=== PATIENT | female | born 1945 | race Caucasian/White ===

== ENCOUNTER 2016-08-23 23:21 | Emergency (ER) | payer OTHER ==
[~2016-08-23 23:21] MED LIST: ATORVASTATIN CA40 M1 PO; CLINDAMYCIN300 M1 PO; COL100 PO; DIOVAN80 MG PO; FLONS; GUAIFEN/CODEIN120 ML PO; IPRATROPIUM BROM3 M2 HHN; LAC PO; LEVAQUIN500 MG PO; LORAZEPAM0.5 MG PO; MOTRIN800 MG PO; NEU300 PO; NOR10T PO; NORCO1 TA2 PO; PRI20 PO; PROVENTIL0.09 MG/A1 INH; ROBAXIN-750750 MG PO; SING10 PO; TAP5 PO; TEMAZEPAM15 MG PO; TOPAMAX25 MG PO; VITAMIN-D1000 IU PO; ZES10 PO; ZOFRAN ODT4 MG SL
[2016-08-24 02:44] VITALS: BP 147/86
== END 2016-08-24 02:44 | disposition home or self-care (01) ==
LOC: ED 23:21
DX: I16.0 Hypertensive urgency (principal); J45.909 Unspecified asthma, uncomplicated; M19.90 Unspecified osteoarthritis, unspecified site; Z79.899 Other long term (current) drug therapy

== ENCOUNTER 2017-04-23 13:57 | Emergency (ER) | payer OTHER, MEDICAID ==
[2017-04-23 17:22] LABS: BASOPHIL % 0.4 % (0-2); PLATELET COUNT 243 x10^3mcL (130-400); RED CELL DISTRIBUTION WIDTH 13.7 % (11.5-14.5)
[2017-04-23 17:33] LABS: CALCIUM 8.5 mg/dL (8.5-10.1); CARBON DIOXIDE 24.9 mmol/L (21-32); CHLORIDE SERUM 95 mmol/L (98-107); CREATININE SERUM 0.7 mg/dL (0.6-1.0); GLUCOSE SERUM 130 mg/dL (74-106); POTASSIUM SERUM 3.4 mmol/L (3.5-5.1); SODIUM SERUM 130 mmol/L (136-145)
[2017-04-23 17:37] LABS: ALBUMIN 3.5 g/dL (3.4-5.0); ALKALINE PHOSPHATASE 160 U/L (46-116); ALT/SGPT 34 U/L (14-59); AST/SGOT 36 U/L (15-37); BILIRUBIN TOTAL 0.75 mg/dL (0.20-1.00); LIPASE 107 IU/L (73-393); TOTAL PROTEIN, SERUM 7.8 g/dL (6.4-8.2)
[2017-04-23 19:04] VITALS: BP 139/79
== END 2017-04-23 19:04 | disposition home or self-care (01) ==
LOC: ED 13:57
PROVIDERS: Emergency Medicine
DX: J11.1 Influenza due to unidentified influenza virus with other respiratory manifestations (principal); I10 Essential (primary) hypertension; J45.909 Unspecified asthma, uncomplicated; E03.9 Hypothyroidism, unspecified; E78.5 Hyperlipidemia, unspecified; M19.90 Unspecified osteoarthritis, unspecified site
CPT/HCPCS: 87804; J0780; J1885; J2405; J7030; Q0092

== ENCOUNTER 2017-08-10 14:37 | Emergency (ER) | payer OTHER, MEDICAID ==
[~2017-08-10] VITALS: Ht 147.3 cm; Wt 66.4 kg
[2017-08-10 14:41] VITALS: Ht 147.3 cm; Wt 66.4 kg
[2017-08-10 15:38] LABS: BASOPHIL % 1.6 % (0-2); PLATELET COUNT 227 x10^3mcL (130-400)
[2017-08-10 15:47] LABS: CALCIUM 9.2 mg/dL (8.5-10.1); CARBON DIOXIDE 26.8 mmol/L (21-32); CHLORIDE SERUM 104 mmol/L (98-107); CREATININE SERUM 0.7 mg/dL (0.6-1.0); GLUCOSE SERUM 102 mg/dL (74-106); POTASSIUM SERUM 3.8 mmol/L (3.5-5.1); SODIUM SERUM 138 mmol/L (136-145)
[2017-08-10 15:52] LABS: ALBUMIN 3.8 g/dL (3.4-5.0); ALKALINE PHOSPHATASE 126 U/L (46-116); ALT/SGPT 39 U/L (14-59); AMYLASE 79 U/L (25-115); AST/SGOT 30 U/L (15-37); BILIRUBIN TOTAL 1.1 mg/dL (0.20-1.00); LIPASE 130 IU/L (73-393); TOTAL PROTEIN, SERUM 7.9 g/dL (6.4-8.2)
[2017-08-10 16:54] VITALS: BP 121/74
== END 2017-08-10 16:54 | disposition home or self-care (01) ==
LOC: ED 14:37
PROVIDERS: Emergency Medicine
DX: K59.00 Constipation, unspecified (principal); I10 Essential (primary) hypertension; J45.909 Unspecified asthma, uncomplicated; E78.5 Hyperlipidemia, unspecified; M19.90 Unspecified osteoarthritis, unspecified site
CPT/HCPCS: 36415; 83880; Q0162

== ENCOUNTER 2018-04-22 09:32 | Emergency (ER) | payer OTHER ==
[~2018-04-22] VITALS: Ht 152.4 cm; Wt 64.9 kg
[2018-04-22 09:40] VITALS: Ht 152.4 cm; Wt 64.9 kg
[2018-04-22 11:45] LABS: microscopic required? NO
[2018-04-22 11:55] LABS: BASOPHIL % 0.7 % (0-2); PLATELET COUNT 250 x10^3mcL (130-400); RED CELL DISTRIBUTION WIDTH 13.4 % (11.5-14.5)
[2018-04-22 12:07] LABS: CALCIUM 9.6 mg/dL (8.5-10.1); CARBON DIOXIDE 28.6 mmol/L (21-32); CHLORIDE SERUM 99 mmol/L (98-107); CREATININE SERUM 0.7 mg/dL (0.6-1.0); GLUCOSE SERUM 95 mg/dL (74-106); POTASSIUM SERUM 4.4 mmol/L (3.5-5.1); SODIUM SERUM 131 mmol/L (136-145)
[2018-04-22 12:08] LABS: urine erythrocyte NEGATIVE (NEGATIVE)
[2018-04-22 12:12] LABS: ALBUMIN 3.8 g/dL (3.4-5.0); ALKALINE PHOSPHATASE 109 U/L (46-116); ALT/SGPT 23 U/L (14-59); AST/SGOT 18 U/L (15-37); LIPASE 146 IU/L (73-393); TOTAL PROTEIN, SERUM 7.9 g/dL (6.4-8.2)
[2018-04-22 12:15] LABS: FREE T4 1.07 ng/dL (0.76-1.46); FREE THYROXINE INDEX 2.7 ug/dL (1.4-4.5); T4(THYROXINE) 7.6 ug/dL (4.7-13.3)
[2018-04-22 12:23] LABS: T3 TOTAL 1.07 ng/mL
[2018-04-22 13:43] VITALS: BP 136/77
== END 2018-04-22 13:43 | disposition home or self-care (01) ==
LOC: ED 09:32
PROVIDERS: Emergency Medicine
DX: R10.13 Epigastric pain (principal); G47.00 Insomnia, unspecified; G62.9 Polyneuropathy, unspecified; J45.909 Unspecified asthma, uncomplicated; I10 Essential (primary) hypertension; M19.90 Unspecified osteoarthritis, unspecified site; E78.5 Hyperlipidemia, unspecified; M79.672 Pain in left foot; M79.671 Pain in right foot
CPT/HCPCS: 36415; 84439

== ENCOUNTER 2019-06-02 17:07 | Emergency (ER) | payer OTHER ==
[~2019-06-02] VITALS: Ht 157.5 cm; Wt 53.5 kg
[2019-06-02 17:13] VITALS: BP 154/67; Ht 157.5 cm; Wt 53.5 kg
== END 2019-06-02 19:53 | disposition left against medical advice (07) ==
LOC: ED 17:07
DX: R10.9 Unspecified abdominal pain (principal)